=== PATIENT | male | born 1985 | race Two or more races ===

== ENCOUNTER 2017-01-23 23:50 | Emergency (ER) | payer OTHER ==
[~2017-01-23] VITALS: Ht 177.8 cm; Wt 83.9 kg
[2017-01-23 23:59] VITALS: BP 152/86
== END 2017-01-24 00:45 | disposition home or self-care (01) ==
LOC: ER 23:52
DX: Z41.2 Encounter for routine and ritual male circumcision (principal); F17.200 Nicotine dependence, unspecified, uncomplicated; I10 Essential (primary) hypertension; E11.9 Type 2 diabetes mellitus without complications
CPT/HCPCS: 99281; A4606; Z7610; Z7502

== ENCOUNTER 2017-07-06 19:24 | Emergency (ER) | payer OTHER ==
[~2017-07-06] VITALS: Ht 175.3 cm; Wt 102.1 kg
--- NOTE | 2017-07-06 19:35 | NUR ---
CALLED PT NAME X 3 IN WR. NO RESPONSE IN WAITING ROOM. WILL FOLLOW UP.
--- NOTE | 2017-07-06 20:07 | NUR ---
CALLED PT NAME X 3 IN WR. NO RESPONSE IN WAITING ROOM. WILL FOLLOW UP.
--- NOTE | 2017-07-06 20:12 | NUR ---
PT AMBULATORY TO ER BED 0 C/O COUGH AND CONGESTION X 5 DAYS WORST YESTERDAY. PT IS [employer] BUT ENDORSES FEVER THE PAST 2 DAYS. SMOKER. STABLE VITALS. AWAITING MD BASS.
--- NOTE | 2017-07-06 20:18 | NUR ---
MEAGAN CROOKS AT BEDSIDE FOR EVAL.
[2017-07-06] MEDS ORDERED: predniSONE 20 MG TABLET ONE (20:25)
[2017-07-06] MEDS ORDERED: IPRATROPIUM NEB FS 0.5 MG/2.5 ML AMPUL.NEB NEB ONE (20:30)
[2017-07-06] MEDS ORDERED: predniSONE 20 MG TABLET PO ONE (20:30)
[2017-07-06] MEDS ORDERED: ALBUTEROL FS 2.5 MG/0.5 ML VIAL.NEB NEB ONE (20:30)
[2017-07-06] MEDS ORDERED: ALBUTEROL FS 2.5 MG/3 ML VIAL.NEB ONE (20:48)
[2017-07-06] MEDS ORDERED: IPRATROPIUM NEB FS 0.5 MG/2.5 ML AMPUL.NEB ONE (20:48)
--- NOTE | 2017-07-06 20:48 | NUR ---
RT AT BEDSIDE FOR BREATHING TREATMENT.
--- NOTE | 2017-07-06 21:49 | NUR ---
Patient discharged to home in stable condition. Written and verbal after care instructions given. Patient verbalizes understanding of instruction.
[2017-07-06 21:50] VITALS: BP 152/94
== END 2017-07-06 21:51 | disposition home or self-care (01) ==
LOC: ER 19:25
DX: R06.2 Wheezing (principal); R05 Cough; R73.03 Prediabetes; I10 Essential (primary) hypertension; F17.200 Nicotine dependence, unspecified, uncomplicated
CPT/HCPCS: 71045; 94640 ×2; 99284; 99406; A4606; J7512; Z7610

== ENCOUNTER 2018-10-19 09:34 | Emergency (ER) ==
[~2018-10-19] VITALS: Ht 180.3 cm; Wt 98.4 kg
[2018-10-19 09:47] VITALS: BP 138/100
[2018-10-19] MEDS ORDERED: PENICILLIN G BENZATHINE 2.4 MMU/4 ML ML IM ONE ×2 (10:00→10:05)
== END 2018-10-19 10:34 | disposition home or self-care (01) ==
LOC: ER 09:38
DX: Z11.3 Encounter for screening for infections with a predominantly sexual mode of transmission (principal); K64.9 Unspecified hemorrhoids; I10 Essential (primary) hypertension; F17.200 Nicotine dependence, unspecified, uncomplicated; E11.9 Type 2 diabetes mellitus without complications; Z98.890 Other specified postprocedural states
CPT/HCPCS: 96372; 99283; J0558

== ENCOUNTER 2018-11-02 13:07 | Emergency (ER) | payer OTHER ==
[~2018-11-02] VITALS: Ht 180.3 cm; Wt 91.2 kg
[2018-11-02 13:17] VITALS: BP 156/88
[2018-11-02] MEDS ORDERED: LIDOCAINE 1%-EPI 1:100,000 20 ML VIAL ONE (13:52)
[2018-11-02] MEDS ORDERED: LIDOCAINE 1%-EPI 1:100,000 20 ML VIAL TP ONE (14:00)
== END 2018-11-02 14:14 | disposition home or self-care (01) ==
LOC: ER 13:09
DX: L02.214 Cutaneous abscess of groin (principal); L03.314 Cellulitis of groin; I10 Essential (primary) hypertension; E11.9 Type 2 diabetes mellitus without complications; F10.10 Alcohol abuse, uncomplicated; F17.200 Nicotine dependence, unspecified, uncomplicated; Y90.9 Presence of alcohol in blood, level not specified; Z98.890 Other specified postprocedural states
CPT/HCPCS: 10060; 99283; A6403; A6407; J3490

== ENCOUNTER 2019-04-04 19:05 | Emergency (ER) | payer OTHER ==
[~2019-04-04] VITALS: Ht 180.3 cm; Wt 104.3 kg
[2019-04-04 19:15] VITALS: BP 148/97
[2019-04-04] MEDS ORDERED: IBUPROFEN 600 MG TABLET PO ONE ×2 (22:53→23:00)
--- NOTE | 2019-04-04 23:23 | NUR ---
XRAY AT BEDSIDE.
== END 2019-04-04 23:50 | disposition home or self-care (01) ==
LOC: ER 19:06
DX: S63.682A Other sprain of left thumb, initial encounter (principal); S60.812A Abrasion of left wrist, initial encounter; S50.311A Abrasion of right elbow, initial encounter; E11.9 Type 2 diabetes mellitus without complications; I10 Essential (primary) hypertension; F10.10 Alcohol abuse, uncomplicated; F17.200 Nicotine dependence, unspecified, uncomplicated; Y90.9 Presence of alcohol in blood, level not specified; Z98.890 Other specified postprocedural states; V19.9XXA Pedal cyclist (driver) (passenger) injured in unspecified traffic accident, initial encounter; Y93.I9 Activity, other involving external motion; Y92.488 Other paved roadways as the place of occurrence of the external cause; Y99.8 Other external cause status
CPT/HCPCS: 73130-TC

== ENCOUNTER 2024-08-31 10:03 | Emergency (ER) | payer OTHER ==
[~2024-08-31] VITALS: Ht 180.3 cm; Wt 95.3 kg
[2024-08-31 10:09] VITALS: BP 150/90; TEMP 98.3
[2024-08-31 10:20] VITALS: O2SAT 98
== END 2024-08-31 10:22 | disposition home or self-care (01) ==
LOC: ER 10:10
DX: J06.9 Acute upper respiratory infection, unspecified (principal); I10 Essential (primary) hypertension; F17.200 Nicotine dependence, unspecified, uncomplicated; E11.9 Type 2 diabetes mellitus without complications